=== PATIENT | male | born 2000 ===

== ENCOUNTER 2021-02-01 16:33 | Emergency (ER) | payer BC, OTHER ==
[~2021-02-01] VITALS: Ht 175.3 cm; Wt 63.5 kg
[2021-02-01 17:54] VITALS: BP 114/77
== END 2021-02-01 21:08 | disposition left against medical advice (07) ==
LOC: ER 16:39
DX: S60.212A Contusion of left wrist, initial encounter (principal); S80.212A Abrasion, left knee, initial encounter; H93.12 Tinnitus, left ear; Z53.21 Procedure and treatment not carried out due to patient leaving prior to being seen by health care provider; V49.49XA Driver injured in collision with other motor vehicles in traffic accident, initial encounter; Y93.89 Activity, other specified; Y92.488 Other paved roadways as the place of occurrence of the external cause; Y99.8 Other external cause status